=== PATIENT | male | born 1990 | race Caucasian/White ===

== ENCOUNTER 2021-04-30 21:04 | Inpatient (IN) ==
[2021-04-30] MEDS ORDERED: polyethylene glycoL 3350 17 GM POWD.PACK PO PRN (23:29)
[2021-04-30] MEDS ORDERED: Ondansetron ODT 4 MG TAB.RAPDIS PO PRN (23:34)
[2021-04-30] MEDS: Nicotine 21 MG PATCH.TD24 TD SCH (23:58)
[2021-05-01] MEDS: *HR* HYDROcodone/Acet 5/325 mg TABLET PO PRN ×3 (00:52→20:15)
[2021-05-01] MEDS: Melatonin 3 MG TABLET PO PRN ×2 (00:52→20:15)
[2021-05-01] MEDS: Baclofen 10 MG TABLET PO PRN ×3 (01:01→23:32)
[2021-05-01 05:36] LABS: BUN/Creatinine Ratio 20 (6-26); Blood Urea Nitrogen 16 mg/dL (6-20); Calcium 9.3 mg/dL (8.6-10.3); Carbon Dioxide 34 mEq/L (23-29); Chloride 102 mEq/L (98-107); Glucose 112 mg/dL (70-105); Osmolality,Calculated 292 (280-300); Potassium 4.3 mEq/L (3.5-5.1); Sodium 140 mEq/L (136-145); eGFR For African Americans > 60 (> 60); eGFR For Non-African Americans > 60 (> 60)
[2021-05-01 05:40] LABS: Basophils % 0.4 %; Eosinophils # 0.3 K/mcL (0.0-0.6); Eosinophils % 4.3 %; Hematocrit 39.6 % (37.5-50.1); Immature Granulocytes % 1.4 % (0-4); Mean Corpuscular HGB Conc 33.6 g/dL (31.6-35.5); Mean Corpuscular Hemoglobin 30.6 pg (28.0-33.3); Mean Corpuscular Volume 91.2 fL (83.0-100.0); Monocytes % 14.6 %; Neutrophils # 3.5 K/mcL (1.6-8.9); Platelet Count 205 K/mcL (140-400); Red Blood Count 4.34 M/mcL (4.19-5.50); Red Cell Distribution Width 13.2 % (11.5-14.5); Segmented Neutrophils % 50.3 %; White Blood Count 6.9 K/mcL (4.3-11.1)
[2021-05-01 05:51] LABS: Hemoglobin 13.3 g/dL (12.9-16.9)
[2021-05-01] MEDS: *HR* Heparin 5,000 UNIT/ML VIAL SQ SCH ×2 (06:29→16:58)
[2021-05-01] MEDS: Multivit/Ca/Min/Fe/FA 1 TAB TABLET PO SCH (08:59)
[2021-05-01] MEDS: PARoxetine 20 MG TABLET PO SCH (08:59)
[2021-05-01] MEDS: Nicotine 21 MG PATCH.TD24 TD SCH (09:00)
[2021-05-01] MEDS ORDERED: PANTOPRAZOLE SODIUM 20 MG PO SCH (09:00)
[2021-05-01] MEDS ORDERED: Baclofen 10 MG TABLET PO ONE (16:48)
[2021-05-01] MEDS: Gabapentin 300 MG CAPSULE PO SCH (20:15)
[2021-05-02] MEDS: *HR* HYDROcodone/Acet 5/325 mg TABLET PO PRN ×3 (05:49→17:52)
[2021-05-02] MEDS: *HR* Heparin 5,000 UNIT/ML VIAL SQ SCH ×2 (05:50→17:51)
[2021-05-02] MEDS: PARoxetine 20 MG TABLET PO SCH (08:38)
[2021-05-02] MEDS: Gabapentin 100 MG CAPSULE PO SCH ×2 (08:38→14:10)
[2021-05-02] MEDS: Multivit/Ca/Min/Fe/FA 1 TAB TABLET PO SCH (08:38)
[2021-05-02] MEDS: Baclofen 10 MG TABLET PO PRN ×2 (08:38→21:11)
[2021-05-02] MEDS: Nicotine 21 MG PATCH.TD24 TD SCH (08:38)
[2021-05-02] MEDS ORDERED: Nicotine 21 MG PATCH.TD24 TD ONE (20:14)
[2021-05-02] MEDS: Melatonin 3 MG TABLET PO PRN (21:11)
[2021-05-02] MEDS: Gabapentin 300 MG CAPSULE PO SCH (21:11)
[2021-05-03] MEDS: *HR* HYDROcodone/Acet 5/325 mg TABLET PO PRN ×3 (00:38→14:41)
[2021-05-03] MEDS: *HR* Heparin 5,000 UNIT/ML VIAL SQ SCH ×2 (05:41→17:08)
[2021-05-03] MEDS: Multivit/Ca/Min/Fe/FA 1 TAB TABLET PO SCH (07:44)
[2021-05-03] MEDS: Gabapentin 100 MG CAPSULE PO SCH ×2 (07:45→14:41)
[2021-05-03] MEDS: Nicotine 21 MG PATCH.TD24 TD SCH (07:45)
[2021-05-03] MEDS: PARoxetine 20 MG TABLET PO SCH (07:45)
[2021-05-03] MEDS: *HR* LORazepam 0.5 MG TABLET PO PRN ×2 (13:06→20:23)
[2021-05-03] MEDS: Baclofen 10 MG TABLET PO PRN (16:04)
[2021-05-03] MEDS: cloNIDine HCL 0.1 MG TABLET PO SCH (20:23)
[2021-05-03] MEDS: Melatonin 3 MG TABLET PO PRN (20:23)
[2021-05-03] MEDS: Gabapentin 300 MG CAPSULE PO SCH (20:23)
[2021-05-04] MEDS: *HR* HYDROcodone/Acet 5/325 mg TABLET PO PRN ×4 (00:38→20:57)
[2021-05-04] MEDS: *HR* LORazepam 0.5 MG TABLET PO PRN ×3 (04:59→18:02)
[2021-05-04] MEDS: *HR* Heparin 5,000 UNIT/ML VIAL SQ SCH ×2 (04:59→17:15)
[2021-05-04 05:36] LABS: Albumin 3.9 g/dL (3.5-5.7); Albumin/Globulin Ratio 1.3 (1.1-2.2); Bilirubin,Direct 0.1 mg/dL (0.0-0.2); Bilirubin,Indirect 0.3 mg/dL (0.0-1.0); Bilirubin,Total 0.4 mg/dL (0.3-1.0); Total Protein 6.9 g/dL (6.4-8.9)
[2021-05-04] MEDS: cloNIDine HCL 0.1 MG TABLET PO SCH ×2 (08:03→20:57)
[2021-05-04] MEDS: Gabapentin 100 MG CAPSULE PO SCH ×2 (08:03→14:50)
[2021-05-04] MEDS: Multivit/Ca/Min/Fe/FA 1 TAB TABLET PO SCH (08:03)
[2021-05-04] MEDS: Nicotine 21 MG PATCH.TD24 TD SCH (08:03)
[2021-05-04] MEDS: PARoxetine 20 MG TABLET PO SCH (08:03)
[2021-05-04] MEDS: Gabapentin 300 MG CAPSULE PO SCH (20:57)
[2021-05-05] MEDS: Baclofen 10 MG TABLET PO PRN ×3 (01:44→21:58)
[2021-05-05] MEDS: *HR* HYDROcodone/Acet 5/325 mg TABLET PO PRN ×3 (03:08→18:36)
[2021-05-05] MEDS: *HR* LORazepam 0.5 MG TABLET PO PRN ×4 (06:11→19:41)
[2021-05-05] MEDS: *HR* Heparin 5,000 UNIT/ML VIAL SQ SCH ×2 (06:12→16:30)
[2021-05-05] MEDS: Multivit/Ca/Min/Fe/FA 1 TAB TABLET PO SCH (08:27)
[2021-05-05] MEDS: cloNIDine HCL 0.1 MG TABLET PO SCH ×2 (08:27→21:58)
[2021-05-05] MEDS: PARoxetine 20 MG TABLET PO SCH (08:27)
[2021-05-05] MEDS: Nicotine 21 MG PATCH.TD24 TD SCH (08:31)
[2021-05-05] MEDS: Gabapentin 100 MG CAPSULE PO SCH ×2 (08:31→16:26)
[2021-05-05] MEDS: Gabapentin 300 MG CAPSULE PO SCH (21:58)
[2021-05-06] MEDS: *HR* HYDROcodone/Acet 5/325 mg TABLET PO PRN ×4 (00:03→20:19)
[2021-05-06] MEDS: *HR* Heparin 5,000 UNIT/ML VIAL SQ SCH ×2 (06:37→20:19)
[2021-05-06] MEDS: Gabapentin 100 MG CAPSULE PO SCH ×2 (09:05→13:36)
[2021-05-06] MEDS: Nicotine 21 MG PATCH.TD24 TD SCH (09:05)
[2021-05-06] MEDS: cloNIDine HCL 0.1 MG TABLET PO SCH ×2 (09:05→20:18)
[2021-05-06] MEDS: *HR* LORazepam 0.5 MG TABLET PO PRN ×3 (09:05→22:14)
[2021-05-06] MEDS: Multivit/Ca/Min/Fe/FA 1 TAB TABLET PO SCH (09:06)
[2021-05-06] MEDS: PARoxetine 20 MG TABLET PO SCH (09:06)
[2021-05-06] MEDS: Baclofen 10 MG TABLET PO PRN ×2 (11:48→20:19)
[2021-05-06] MEDS: Gabapentin 300 MG CAPSULE PO SCH (20:19)
[2021-05-06] MEDS: Melatonin 3 MG TABLET PO PRN (22:14)
[2021-05-07] MEDS: *HR* Heparin 5,000 UNIT/ML VIAL SQ SCH (06:49)
[2021-05-07] MEDS: Baclofen 10 MG TABLET PO PRN (06:50)
[2021-05-07] MEDS: *HR* LORazepam 0.5 MG TABLET PO PRN (06:50)
[2021-05-07] MEDS: *HR* HYDROcodone/Acet 5/325 mg TABLET PO PRN (07:37)
[2021-05-07 08:27] VITALS: BP 118/76; PULSE 76; RESP 16; TEMP 97.5; O2SAT 100
[2021-05-07 13:12] LABS: HIV-1 Viral Load Interp NOT DETECTED (Not Detected)
== END 2021-05-07 07:40 | disposition other institution (70) | DRG 93 ==
LOC: INPGRE 21:50
PROVIDERS: ADMIT Family Medicine; ATTEND Family Medicine